=== PATIENT | female | born 1980 | race Caucasian/White ===

== ENCOUNTER 2021-12-12 19:13 | Emergency (ER) | payer BC ==
[2021-12-12 19:19] VITALS: BP 142/94; PULSE 93; TEMP 98.2; BMI 31.7
[2021-12-12] MEDS ORDERED: ACETAMINOPHEN 1000 MG/100 ML BAG IVPB ONE (21:34)
[2021-12-12] MEDS ORDERED: ONDANSETRON 4 MG/2 ML VIAL IVPUSH ONE (21:34)
[2021-12-12] MEDS ORDERED: SODIUM CHLORIDE 0.9% 500 ML INFUS.BAG IV ONE (21:34)
[2021-12-12] MEDS ORDERED: ACETAMINOPHEN INJECTION 100 ML IVPB ONE (21:44)
[2021-12-12] MEDS ORDERED: ONDANSETRON 4 MG/2 ML VIAL ONE (21:45)
[2021-12-12 22:05] LABS: BASO % 1.1 % (0-2.0); EOS % 0.9 % (0-4.5); HEMATOCRIT 40.9 % (32.4-45.2); HEMOGLOBIN 13.8 GM/dL (10.7-15.3); LYMPH % 26.2 % (8-40); MCH 29.3 pg (25.7-33.7); MCHC 33.7 g/dl (32.0-36.0); MONO % 4.7 % (3.8-10.2); NEUT % 67.1 % (42.8-82.8); PLATELET COUNT 306 10^3/uL (134-434); RDW 13.3 % (11.6-15.6); WHITE BLOOD COUNT 12.1 K/mm3 (4.0-10.0)
[2021-12-12 22:14] LABS: EPI CELLS 35 /uL (0-25.1); HCG,QUALITATIVE URINE Negative; HYALINE CASTS 1 /uL (0-3.1); PH,URINE 5.5 (5.0-8.0); URINE APPEARANCE CLEAR; URINE BACTERIA 2233 /uL (0-1359); URINE BILIRUBIN NEGATIVE (NEGATIVE); URINE COLOR YELLOW; URINE GLUCOSE (UA) NEGATIVE (NEGATIVE); URINE KETONE TRACE (NEGATIVE); URINE LEUK ESTERASE 1+ (NEGATIVE); URINE NITRITE NEGATIVE (NEGATIVE); URINE PROTEIN NEGATIVE (NEGATIVE); URINE RBC 18 /uL (0-23.9); URINE UROBILINOGEN 0.2 mg/dL (0.2-1.0); URINE WBC 26 /uL (0-25.8)
[2021-12-12 22:27] LABS: CALCIUM 9.2 mg/dL (8.5-10.1)
[2021-12-12 22:28] LABS: ALBUMIN 3.9 g/dl (3.4-5.0); BLOOD UREA NITROGEN 13.4 mg/dL (7-18)
[2021-12-12 22:31] LABS: CREATININE 0.5 mg/dL (0.55-1.3)
[2021-12-12 22:32] LABS: BILIRUBIN,TOTAL 0.3 mg/dL (0.2-1)
== END 2021-12-13 00:45 | disposition home or self-care (01) ==
LOC: JER 19:13
PROC: 3E0333Z Introduction of Anti-inflammatory into Peripheral Vein, Percutaneous Approach (ICD-10-PCS; principal; 2021-12-12)
PROC: 3E0333Z Introduction of Anti-inflammatory into Peripheral Vein, Percutaneous Approach (ICD-10-PCS; 2021-12-12)
DX: R10.13 Epigastric pain (principal)
CPT/HCPCS: 36415; 76705-TC; 80053; 81003; 83690; 84703; 85025; 87086; 87186; 93005; 93010; 99285-25

== ENCOUNTER 2022-01-09 09:39 | Day surgery (SDC) | payer BC ==
[2022-01-09 10:05] VITALS: BMI 31.2
[2022-01-09 12:01] VITALS: TEMP 97.7
[2022-01-09 12:03] VITALS: BP 131/74; PULSE 84
== END 2022-01-09 12:05 | disposition home or self-care (01) ==
LOC: FASU-ENDO 09:39
PROVIDERS: ATTEND Internal Medicine Gastroenterology
PROC: 0DB68ZX Excision of Stomach, Via Natural or Artificial Opening Endoscopic, Diagnostic (ICD-10-PCS; 2022-01-09)
PROC: 0DB48ZX Excision of Esophagogastric Junction, Via Natural or Artificial Opening Endoscopic, Diagnostic (ICD-10-PCS; 2022-01-09)
PROC: 0DB98ZX Excision of Duodenum, Via Natural or Artificial Opening Endoscopic, Diagnostic (ICD-10-PCS; principal; 2022-01-09 11:15)
DX: K29.80 Duodenitis without bleeding (principal); K29.50 Unspecified chronic gastritis without bleeding; K21.00 Gastro-esophageal reflux disease with esophagitis, without bleeding; R10.13 Epigastric pain
CPT/HCPCS: 84703; 88305-TC; 88342-TC

== ENCOUNTER 2022-02-09 10:57 | Day surgery (SDC) | payer BC ==
[2022-02-07 14:28] VITALS: BMI 28.4
[2022-02-09] MEDS ORDERED: PROPOFOL 20 ML ONE ×3 (12:37)
[2022-02-09 13:03] VITALS: TEMP 98.3
[2022-02-09 13:45] VITALS: BP 114/73; PULSE 76
== END 2022-02-09 13:50 | disposition home or self-care (01) ==
LOC: FASU-ENDO 10:57
PROVIDERS: ATTEND Internal Medicine Gastroenterology
PROC: 0DJD8ZZ Inspection of Lower Intestinal Tract, Via Natural or Artificial Opening Endoscopic (ICD-10-PCS; principal; 2022-02-09 12:15)
DX: Z12.11 Encounter for screening for malignant neoplasm of colon (principal); K64.1 Second degree hemorrhoids
CPT/HCPCS: 84703